=== PATIENT | female | born 1960 | race Two or more races ===

== ENCOUNTER 2018-05-23 22:03 | Inpatient (IN) | payer BC, OTHER ==
[~2018-05-23] VITALS: Ht 157.5 cm; Wt 88.9 kg
--- NOTE | 2018-05-23 22:15 | NUR ---
PT BIB PA. COMP OF HAVING A "SYNCOPAL EPISODE FOR 1 MINUTE. +N/V" NO SOB NOTED AT THIS TIME. NO ACUTE DISTRESS AT THIS TIME. AWAITING MD MICHELLE.
[2018-05-23] MEDS ORDERED: IV NS 0.9% 1,000 ML BAG IV ONE (22:30)
[2018-05-23 22:49] LABS: BASOPHILS # (AUTO) 0.1 /CMM (0.0-0.2); BASOPHILS % (AUTO) 0.4 % (0.0-2.0); EOSINOPHILS % (AUTO) 0.5 % (0.0-6.0); HEMATOCRIT 41 % (33-45); HEMOGLOBIN 13.7 g/dL (11.5-14.8); LYMPHOCYTES # (AUTO) 0.7 /CMM (0.8-4.8); LYMPHOCYTES % (AUTO) 5.9 % (20.0-44.0); MEAN CORPUSCULAR HGB CONC 34 g/dl (31.0-36.0); MEAN CORPUSCULAR VOLUME 89 fL (82-100); MONOCYTES # (AUTO) 0.7 /CMM (0.1-1.30); MONOCYTES % (AUTO) 5.6 % (2.0-12.0); NEUTROPHILS % (AUTO) 87.6 % (43.0-81.0); PLATELET COUNT (AUTO) 348 /CMM (150-450); RED BLOOD CELL COUNT(AUTO) 4.54 MIL/uL (4.0-5.2); WHITE BLOOD COUNT (AUTO) 12.5 K/uL (4.3-11.0)
[2018-05-23 23:00] LABS: CALCIUM, SERUM 8.9 mg/dL (8.5-10.1); CARBON DIOXIDE 27 mmol/L (21-32); CHLORIDE 105 mmol/L (98-107); CREATININE 0.7 mg/dL (0.6-1.3); GLUCOSE 143 mg/dL (74-106); POTASSIUM 4.3 mmol/L (3.5-5.1); SODIUM SERUM 142 mmol/L (136-145); UREA NITROGEN, BLOOD 17 mg/dL (7-18)
[2018-05-23 23:05] LABS: ALANINE AMINOTRANSFERASE 18 U/L (12-78); ALBUMIN 3.3 g/dL (3.4-5.0); ALKALINE PHOSPHATASE 91 U/L (46-116); ASPARTATE AMINOTRANSFERASE 11 U/L (15-37); BILIRUBIN,TOTAL 0.3 mg/dL (0.2-1.0); TOTAL PROTEIN, SERUM 7.7 g/dL (6.4-8.2)
[2018-05-23] MEDS ORDERED: ONDANSETRON HCL/PF 4 MG/2 ML VIAL ONE (23:49)
[2018-05-24] VITALS (8 sets, daily range): BP systolic 114–159; BP diastolic 58–80
[2018-05-24] MEDS ORDERED: IV NS 0.9% 1,000 ML BAG IV ONE
[2018-05-24] MEDS ORDERED: ONDANSETRON HCL/PF 4 MG/2 ML VIAL IV ONE
--- NOTE | 2018-05-24 00:42 | NUR ---
Patient is resting comfortably in bed with eyes closed. Easily aroused. VSS
--- NOTE | 2018-05-24 00:49 | NUR ---
REPORT GIVEN TO PJ JACKSON.
[2018-05-24] MEDS ORDERED: IV NS 0.9% 1,000 ML IV PRN (01:20)
[2018-05-24] MEDS ORDERED: Z GUARD REMEDY 2 OZ OINT TP PRN (01:30)
[2018-05-24] MEDS ORDERED: MAG HYDROX/AL HYDROX/SIMETH 30 ML UDC PO PRN (01:30)
[2018-05-24] MEDS ORDERED: ZOLPIDEM TARTRATE 5 MG TABLET PO PRN (01:30)
[2018-05-24] MEDS ORDERED: HYDROCODONE/APAP 5/325MG 1 EACH TABLET PO PRN (01:30)
[2018-05-24] MEDS ORDERED: MAGNESIUM HYDROXIDE 30 ML UDC PO PRN (01:30)
--- NOTE | 2018-05-24 02:00 | NUR ---
RECEIVED PT FROM ER IN STABLE CONDITION. A, OX4. BREATHING EVENLY. NO SOB. NAD. W/ C/O LIGHTHEADEDNESS. ON ONGOING IV NS BOLUS. IV SITE INTACT AND PATENT. ALL MEDICAL INFO WAS OBTAINED FROM THE PT. VITAL SIGNS OBTAINED. NEEDS ATTENDED, BED LOW LOCKED. CALL LIGHT WITHIN REACH, WILL CONT TO MONITOR AND WILL F/U WITH MD'S ORDERS.
[2018-05-24] MEDS: ACETAMINOPHEN 325 MG TABLET PO PRN ×2 (05:21→19:07)
--- NOTE | 2018-05-24 05:26 | NUR ---
TYLENOL GIVEN ORDERED PER PT'S REQUEST FOR C/O HEADACHE. WILL CONT TO MONITOR ,
--- NOTE | 2018-05-24 06:55 | NUR ---
PT IN BED RESTING COMFORTABLY. BREATHING EVENLY. NO ACUTE EVENT DURING THE NIGHT. SR ON TELE MONITOR, NEEDS ATTENDED. ASSISTED W/ ADLS . CALL LIGHT WITHIN REACH. BED LOW LOCKED. WILL CONT TO MONITOR AND WILL ENDORSE TO AM SHIFT FOR JOANIE.
--- NOTE | 2018-05-24 07:21 | NUR ---
RN OPENING NOTES PT RECEIVED IN BED AT LOWEST AND LOCKED POSITION WITH SIDE RAILS UP X2, A/O X3, BREATHING EVEN AND UNLABORED ON RA, NO S/S OF PAIN OR DISTRESS NOTED AT THIS TIME, IV IS PATENT AND INTACT, PRESENT AT THE BEDSIDE, SAFETY PRECAUTIONS IN PLACE, CALL LIGHT WITHIN REACH, WILL MONITOR ACCORDINGLY
[2018-05-24] MEDS ORDERED: ALBU8.5H8 IH (08:25)
--- NOTE | 2018-05-24 12:55 | NUR ---
RN NOTES PT COMPLAINED OF SLIGHT HEARTBURN AFTER EATING LUNCH, REQUESTED TUMS. DR. SCHILLING NOTIFIED OF PT REQUEST AND HE ORDERED CARAFATE LIQUID Q6H PO, WILL IMPLEMENT ORDERS
[2018-05-24] MEDS: SUCRALFATE 1 G/10 ML UDC PO SCH ×3 (13:06→23:42)
[2018-05-24] MEDS: IV NS 0.9% 1,000 ML IV PRN (14:41)
--- NOTE | 2018-05-24 18:45 | NUR ---
RN CLOSING NOTES PT IN BED AT LOWEST AND LOCKED POSITION WITH SIDE RAILS UP X2, A/O X3, BREATHING EVEN AND UNLABORED ON RA, NO S/S OF PAIN OR DISTRESS NOTED AT THIS TIME, IV IS PATENT AND INTACT, FAMILY PRESENT AT THE BEDSIDE, SAFETY PRECAUTIONS IN PLACE, CALL LIGHT WITHIN REACH, ALL NEEDS ATTENDED TO, WILL ENDORSE TO SUPERVISOR EVAPORATOR FOR CONTINUITY OF CARE
--- NOTE | 2018-05-24 19:20 | NUR ---
MS/RN OPENING NOTES PT RECEIVED AWAKE, RESTING COMFORTABLY IN BED. AT BEDSIDE. ON ROOM AIR, BREATHING EVEN AND UNLABORED. DENIES SOB BUT NOTES HEADACHE AND REQUESTING TYLENOL. IV TO LEFT HAND PATENT AND INTACT RUNNING IVF ORDERED. BED IN LOW/LOCKED POSITION WITH CALL LIGHT IN REACH AND BILATERAL UPPER SIDE RAILS IN PLACE. WILL CONTINUE TO MONITOR
[2018-05-25 06:35] LABS: BASOPHILS % (AUTO) 0.5 % (0.0-2.0); EOSINOPHILS % (AUTO) 2.4 % (0.0-6.0); HEMATOCRIT 36 % (33-45); HEMOGLOBIN 12.2 g/dL (11.5-14.8); LYMPHOCYTES # (AUTO) 1.6 /CMM (0.8-4.8); LYMPHOCYTES % (AUTO) 30.2 % (20.0-44.0); MEAN CORPUSCULAR HGB CONC 34 g/dl (31.0-36.0); MEAN CORPUSCULAR VOLUME 89 fL (82-100); MONOCYTES # (AUTO) 0.6 /CMM (0.1-1.30); NEUTROPHILS # (AUTO) 2.9 /CMM (1.8-8.9); NEUTROPHILS % (AUTO) 55.9 % (43.0-81.0); PLATELET COUNT (AUTO) 295 /CMM (150-450); RED BLOOD CELL COUNT(AUTO) 3.99 MIL/uL (4.0-5.2); WHITE BLOOD COUNT (AUTO) 5.2 K/uL (4.3-11.0)
[2018-05-25] MEDS: ONDANSETRON HCL/PF 4 MG/2 ML VIAL IVP PRN ×2 (06:38→12:09)
--- NOTE | 2018-05-25 06:41 | NUR ---
MS/RN CLOSING NOTES PT AWAKE, AT BEDSIDE. ON ROOM AIR, BREATHING EVEN AND UNLABORED. DENIES SOB AND PAIN AT THIS TIME. WITH 5 EPISODE OF CLEAR WATERY EMESIS. ADMINISTERED PRN ZOFRAN ORDERED. IV TO LEFT HAND REMAINS PATENT AND INTACT. ASSISTED BACK INTO BED. NO SYNCOPAL EPISODES DURING SHIFT. NOTED WITH OCCASIONAL LIGHT HEADEDNESS UPON GETTING UP FROM THE BED. ALL NEEDS MET. KEPT PT COMFORTABLE POSSIBLE. BILATERAL UPPER SIDE RAILS IN PLACE. BED IN LOW/LOCKED POSITION WITH CALL LIGHT IN REACH. WILL ENDORSE TO DAY SHIFT RN JOANIE.
[2018-05-25 06:48] LABS: CALCIUM, SERUM 8.3 mg/dL (8.5-10.1); CREATININE 0.5 mg/dL (0.6-1.3); PHOSPHORUS 2.8 mg/dL (2.5-4.9); POTASSIUM 3.7 mmol/L (3.5-5.1)
[2018-05-25] MEDS: SUCRALFATE 1 G/10 ML UDC PO SCH ×2 (07:25→12:01)
--- NOTE | 2018-05-25 07:52 | NUR ---
MS RN OPENING NOTE RECEIVED PATIENT IN BED. ALERT ORIENTED X4. ON ROOM AIR TOLERATING WELL . IN NO APPARENT DISTRESS OR DISCOMFORT AT THIS TIME. RESPIRATIONS EVEN AND UNLABORED. DENIES PAIN AND SOB. PATIENT IS ABLE TO COMMUNICATE NEEDS. REPORTS NAUSEA BUT NO VOMITING SINCE ANTIN[place] MEDICATION WAS ADMINISTERED. LEFT HAND 20G IVC SL. PATENT AND INTACT. ALL NEEDS ATTENDED, KEPT CLEAN AND COMFORTABLE. SAFETY MEASURES IN PLACE, BED IN LOW LOCKED POSITION, SIDE RAILS UP X2, CALL LIGHT WITHIN EASY REACH WILL CONTINUE TO MONITOR.
[2018-05-25 08:00] VITALS: BP 124/71
[2018-05-25] MEDS: IV NS 0.9% 1,000 ML IV PRN (12:09)
[2018-05-25] MEDS ORDERED: ONDA4TAB5 PO (14:50)
--- NOTE | 2018-05-25 16:30 | NUR ---
MS ESTATE CONSERVATOR NOTE RECEIVED ORDER FOR DISCHARGE. PATIENT IS BEING DISCHARGED HOME WITH OUTPATIENT FOLLOW UP. PATIENT IS ALERT ORIENTED X4. MEDICALLY STABLE. VITAL SIGNS STABLE. NO RECENT NV. IN NO DISTRESS, DENIES PAIN. DISCHARGE PREPARED VIA EXITCARE. REVIEWED WITH PATIENT. INSTRUCTIONS PROVIDED REGARDING NEW AND OLD MEDICATIONS, DISEASE PROCESS, FOLLOW UP CARE. PATIENT VERBALIZED UNDERSTANDING OF THE TEACHINGS. VALUABLES CHECKED AND ACCOUNTED FOR. NEW MEDICATION PRESCRIPTION WAS GIVEN TO PATIENT. VACCINATIONS OFFERED BUT REFUSED STATING SHE WILL RECEIVE IT AT HER PRIMARY DOCTOR'S OFFICE. SKIN REMAINS INTACT. ALL FORMS ARE SIGNED, COPIES MADE PLACED IN CHART. IV SITE DC-ED, TIP INTACT. ID BAND REMOVED. PATIENT LEFT THE UNIT ON A WHEELCHAIR, ACCOMPANIED BY HER AND RUMA LANDRY.
== END 2018-05-25 16:45 | disposition home or self-care (01) | DRG 74 ==
LOC: ER 22:05 → TELE 05-24 00:43 → MED 05-24 10:17
PROVIDERS: ADMIT Nurse Practitioner Acute Care; ATTEND Nurse Practitioner Acute Care
DX: G90.8 Other disorders of autonomic nervous system (principal); E44.1 Mild protein-calorie malnutrition; E86.0 Dehydration; E66.01 Morbid (severe) obesity due to excess calories; G47.33 Obstructive sleep apnea (adult) (pediatric); I10 Essential (primary) hypertension; A08.4 Viral intestinal infection, unspecified; K21.9 Gastro-esophageal reflux disease without esophagitis; D72.829 Elevated white blood cell count, unspecified
CPT/HCPCS: 36415; 70450-TC; 71045-TC; 80048-TC; 80061-TC; 80076-TC; 82962-TC; 83735-TC; 84100-TC; 84484-TC; 85025-TC; 85730-TC; 86850-TC; 87081-TC; 93307-TC; A4606; G0378; J2405; J7030; Z7610